=== PATIENT | female | born 1960 | race Caucasian/White ===

== ENCOUNTER 2016-08-20 10:48 | Emergency (ER) | payer BC ==
[2016-08-20 11:00] VITALS: BMI 28.4
[2016-08-20] MEDS ORDERED: NS 1,000 ML IV ONE (12:00)
[2016-08-20] MEDS ORDERED: ONDANSETRON HCL 4 MG/2 ML VIAL IV ONE (12:00)
[2016-08-20] MEDS ORDERED: Pharmacy Review for Metformin - IV Contrast Given SCH (12:00)
[2016-08-20] MEDS ORDERED: MORPHINE 4 MG/ML INJECTION IV ONE (12:00)
[2016-08-20] MEDS ORDERED: Clindamycin 900 mg/D5W 50 ml 900 MG/50 ML IVB IV ONE (12:00)
--- NOTE | 2016-08-20 12:07 | EDPRACDOC ---
- General Information Chief Complaint: Wound Stated Complaint: FOLLOW UP Time Seen by Provider: 08/20/16 11:56 Information Source: Patient Mode of Arrival:: Car Home Medications: Home Medications Bethanechol [Urecholine] 25 mg PO TID 05/04/15 Duloxetine [Cymbalta] 60 mg PO DAILY 05/04/15 Lisinopril [Prinivil] 10 mg PO DAILY 05/04/15 Meloxicam [Mobic] 7.5 mg PO BID 05/04/15 Pregabalin [Lyrica] 100 mg PO TID 05/04/15 Tramadol HCl [Ultram] 50 mg PO Q8 PRN 05/04/15 Estradiol 1 mg PO DAILY 05/05/15 Hydrocodone/Acetaminophen [Hydrocodon-Acetaminophen 5-325] 1 - 2 tab PO Q6-8H PRN 05/05/15 Atorvastatin Calcium [Lipitor] 10 mg PO DAILY 08/20/16 Cephalexin Monohydrate [Keflex] 500 mg PO Q6H #28 cap 08/20/16 Dextroamphetamine/Amphetamine [Adderall Xr 25 mg Capsule] 25 mg PO DAILY Ergocalciferol (Vitamin D2) [Vitamin D] 50,000 units PO WEEKLY 08/20/16 Mupirocin [Bactroban] 1 applic TOP BID 08/20/16 Oxycodone Immediate Release [Oxycodone Immediate Release (OxyIR)] 5 mg PO Q6H PRN #20 tab 08/20/16 Sulfamethoxazole/Trimethoprim [Bactrim Ds Tablet] 1 tab PO .BID X 7D 08/20/16 Allergies/Adverse Reactions: Allergies Allergy/AdvReac Type Severity Reaction Status Date / Time No Known Allergies Allergy Verified 08/20/16 11:00 - History of Present Illness Onset: TODAY HPI: PT PRESENTS WITH RED, WARM, SWOLLEN AREA TO RIGHT SIDE OF FACE. STATES SHE WAS SEEN YESTERDAY AND HAD THE AREA LANCED, AND GIVEN IV ANTIBIOTICS. STATES THIS AM THE AREA IS LARGER AND GOING DOWN INTO HER NECK. DENIES FEVER, CHILLS, NAUSEA OR VOMITING. Location: Reports: Face Last Tetanus: No Relevent History Of: Reports: None Prior Abscess: Reports: Same Pain: Reports: Moderate Quality: Reports: Draining, Painful, Red Associated Signs & Symptoms: Reports: None ED Past Medical History - History Reviewed Yes Nurses notes reviewed and agree except as marked - Patient Medical History Cardiac History: Reports: Hypertension Psychological History: Reports: Depression - Family Medical History Reports: Hypertension (PARENTS), Diabetes (FATHER), Cancer (PARENTS), Cardiac Disorders (FATHER). Denies: Stroke - Social Medical History Smoking Status: Never smoker EDM Review of Systems - Review of Systems ROS Negative Except as Marked: Yes All systems reviewed and were negative except as marked - Physical Exam Constitutional: Alert Oriented to: Time, Person, Place Last recorded Vital Signs: Last Vital Signs Temp 98.7 F 08/20/16 10:56 Pulse 83 08/20/16 10:56 Resp 18 08/20/16 10:56 BP 120/62 08/20/16 10:56 Pulse Ox 98 08/20/16 10:56 Oxygen Pulse Oxygen Saturation 98 O2 Device Room Air Oxygen Flow Rate Fraction of Inspired Oxygen ( FIO2) - HEENT Head: Swelling, Tender Eye Exam: Normal (PERRL, EOMI, Sclera white) Oropharynx: Normal (Pharynx:Moist without exudate,Gums-no swelling) Tympanic Membrane: Normal Nose: No Symptoms Reported (septum midline) Neck: Normal (FROM, trachea at midline) - Respiratory/Cardiovascular Respiratory: Normal - CTA (BBS clear to auscultation without adventitious sounds ) Cardiovascular: Normal (RRR without murmur, gallop or rub) - GI Auscultation: Normal (NABS) Palpation: Normal (Soft,No rebound or guarding, non distended) Tenderness: Non tender Reilly's Sign: Negative Rectal Exam: Deferred - Musculoskeletal Back: Normal (Non-Tender) Extremities: Normal (Normal tone, Pulses 2+ No cyanosis or edema, FROM) - Integumentary Skin: Normal, Warm, Dry Lymphatics: Normal (no adenopathy) - Neurologic Memory Impaired: Normal Motor Function: Normal (Normal tone, Pulses 2+ No cyanosis or edema, FROM) Cranial Nerve: Normal (CN II-X11 intact sensation, strength 5/5) Cerebellar: Normal Mood Description: Normal Perception: Normal ED Abscess/Mass Exam - Integumentary Skin: Normal Mass: Size (LARGE), Red, Tender, Warm, Fluctuant, Local Cellulitis Lymphatics: Normal - Differential Diagnosis Abscess, Cellulitis - Results All Results Reviewed and Normal except as Highlighted below: Yes 08/20/16 12:26 08/20/16 12:26 Decision Time to Discharge: 14:09 - Departure Disposition: Home Condition: Stable Final Diagnosis: Cellulitis of face Instructions: Cellulitis (ED) Education/Counseling Given To: Patient Education/Counseling Given Regarding: Diagnosis, Treatment, Prognosis, Follow Up Referrals: Kristy Murdock MD [Primary Care Provider] - One Week Prescriptions: Cephalexin Monohydrate [Keflex] 500 mg PO Q6H #28 cap Oxycodone Immediate Release [Oxycodone Immediate Release (OxyIR)] 5 mg PO Q6H PRN #20 tab PRN Reason: Pain Additional Instructions: INCREASE FLUID INTAKE. FOLLOW UP WITH PRIMARY CARE PROVIDER NEXT WEEK. TAKE ALL ANTIBIOTICS PRESCRIBED. RETURN TO THE ED FOR WORSENING SYMPTOMS OR CONCERNS.
[2016-08-20 12:37] LABS: AUTOMATED BASOPHIL 0.4 % (0-2); AUTOMATED EOSINOPHIL 2.2 % (0-5); AUTOMATED LYMPH 16.4 % (17-44); AUTOMATED MONOCYTE 6.4 % (3-10); AUTOMATED NEUTROPHIL 74.6 % (45-76); MPV 8.3 fL (7.4-10.4)
[2016-08-20 12:45] LABS: BLOOD UREA NITROGEN 12 MG/DL (7-17); CALCIUM 8.7 MG/DL (8.4-10.2); CALCULATED OSMOLALITY 270 MOs/Kg (270-290); CHLORIDE 105 mEq/L (98-107); GLUCOSE 75 MG/DL (70-99); SODIUM LEVEL 141 mEq/L (137-146); TOTAL PROTEIN 7.4 G/DL (6.3-8.2)
--- NOTE | 2016-08-20 14:02 | DIRPT ---
CLINICAL DATA: 55-year-old female with pimple corner of left upper lip which was lanced. Increasing redness and swelling. Initial encounter. EXAM: CT MAXILLOFACIAL WITH CONTRAST TECHNIQUE: Multidetector CT imaging of the maxillofacial structures was performed with intravenous contrast. Multiplanar CT image reconstructions were also generated. A small metallic BB was placed on the right yarsanism in order to reliably differentiate right from left. CONTRAST: 100 cc Isovue 370. COMPARISON: No comparison facial CT FINDINGS: Anterior lateral to the left upper premolar is a 2 x 1.2 x 1 cm region of soft tissue swelling with reticulation of surrounding fat planes consistent with cellulitis without well-defined drainable abscess. Vessel courses through this region. No septic thrombophlebitis currently noted. Although there are caries, the left sided cellulitis does not appear to be a primary odontogenic in origin. Surrounding slightly prominent size lymph nodes asymmetric greater on the left and probably reactive in origin given the surrounding findings rather than representing lymphoma. Visualized intracranial and orbital structures unremarkable. Post cervical spine surgery. Minimal plaque right carotid bifurcation and cavernous segment internal carotid artery bilaterally. IMPRESSION: Anterior lateral to the left upper premolar is a 2 x 1.2 x 1 cm region of soft tissue swelling with reticulation of surrounding fat planes consistent with cellulitis without well-defined drainable abscess. Vessel courses through this region. No septic thrombophlebitis currently noted. Although there are caries, the left sided cellulitis does not appear to be a primary odontogenic in origin. Surrounding slightly prominent size lymph nodes asymmetric greater on the left and probably reactive in origin given the surrounding findings rather than representing lymphoma. Electronically Signed By: Laurent Chen M.D. On: 08/20/2016 13:59
[2016-08-20] MEDS ORDERED: CEPHALEXIN 500 MG CAP PO ONE (14:09)
[2016-08-20 14:36] VITALS: BP 104/69; PULSE 73; TEMP 98.2
== END 2016-08-20 14:35 | disposition home or self-care (01) ==
LOC: ED 10:48
DX: L03.211 Cellulitis of face (principal)
CPT/HCPCS: 36415; 70487; 80053; 83605; 85025; 87040; 96365; 96375; 99284; A9698; J2270; J2405; J3490; S0077